=== PATIENT | male | born 1970 | race African-American/Black ===

== ENCOUNTER 2018-01-30 11:55 | Emergency (ER) | payer BC, OTHER ==
[~2018-01-30] VITALS: Ht 188 cm; Wt 128.1 kg
[2018-01-30 12:21] VITALS: BP 162/112
== END 2018-01-30 15:51 | disposition left against medical advice (07) ==
LOC: ER 13:04
DX: R60.9 Edema, unspecified (principal); Z53.21 Procedure and treatment not carried out due to patient leaving prior to being seen by health care provider